=== PATIENT | female | born 1980 | race Caucasian/White ===

== ENCOUNTER 2018-02-22 08:50 | Inpatient (IN) | payer OTHER ==
[2018-02-22] MEDS ORDERED: AMIKACIN IV PER PHARMACY XX (09:30)
[2018-02-22] MEDS ORDERED: OXYCODONE/ACETAMINOPHEN (5/325) TAB PO (10:30)
[2018-02-22 10:33] LABS: AADO2 Arterial 573.3 mmHg (7.0-24.0); Arterial Base Excess 9.1 mmol/L (-3.0-3); Arterial Blood Gas Oxygen Sat 94.4 mmHG (95.0-98.0); Arterial COHb 1.1 % (0.0-3.0); Arterial Fraction of Oxyhgb 92.8 % (93.0-99.0); Arterial HCO3 35.1 mmol/L (22.0-26.0); Arterial MetHb 0.6 % (0.0-1.5); Arterial Total Hemglobin 7.4 g/dl (12.0-18.0); Arterial pCO2 58.6 mmhg (35-45); MODE VENT - AC; Site LB
[2018-02-22 10:38] LABS: ALANINE AMINOTRANSFERASE 38 IU/L (13-69); ALBUMIN 2.6 g/dl (3.3-4.9); ALBUMIN/GLOBULIN RATIO 1.13; ALKALINE PHOSPHATASE 141 IU/L (42-121); ANION GAP 6 (5-13); ASPARTATE AMINO TRANSFERASE 71 IU/L (15-46); BILIRUBIN,INDIRECT 0.5 mg/dl (0-1.1); BILIRUBIN,TOTAL 0.5 mg/dl (0.2-1.3); BLOOD UREA NITROGEN 24 mg/dl (7-20); CARBON DIOXIDE 36 mmol/L (21-31); CHLORIDE 103 mmol/L (97-110); CREATININE 0.47 mg/dl (0.44-1.00); Estimated GFR > 60 mL/min (>60); GLUCOSE 143 mg/dl (70-220); POTASSIUM 3.3 mmol/L (3.5-5.1); SODIUM 145 mmol/L (135-144); TOTAL PROTEIN 4.9 g/dl (6.1-8.1)
[2018-02-22] MEDS ORDERED: VANCOMYCIN IV PER PHARMACY XX (12:30)
[2018-02-22] MEDS: DEXTROSE 5%-0.45% NACL 1,000 ML IV (13:04)
[2018-02-22] MEDS: METHYLPREDNISOLONE 125 MG INJ IV ×2 (13:04→23:09)
[2018-02-22] MEDS: clonAZEPAM 0.5 MG TAB PO (13:40)
[2018-02-22] MEDS: DIPHENHYDRAMINE 50 MG INJ IV (13:40)
[2018-02-22] MEDS: OXYCODONE/ACETAMINOPHEN (5/325) TAB PO (14:08)
[2018-02-22] MEDS: METHADONE 10 MG TAB PO ×2 (15:21→20:51)
[2018-02-22] MEDS: QUETIAPINE 25 MG TAB GTB ×2 (15:27→23:09)
[2018-02-22] MEDS: POTASSIUM CHLORIDE 100 ML IVPB (15:27)
[2018-02-22] MEDS: VANCOMYCIN 1 GM (PMX) 250 ML IVPB (17:35)
[2018-02-22 19:54] LABS: HAAIG REFLEX REFLEX FILED
[2018-02-22 20:22] LABS: COMPLEMENT C3 53 mg/dl (88-165)
[2018-02-22 20:24] LABS: COMPLEMENT C4 < 8 mg/dl (14-44)
[2018-02-22 20:44] LABS: HEPATITIS B SURFACE ANTIGEN NEGATIVE (NEGATIVE)
[2018-02-22] MEDS: CLOTRIMAZOLE 1% 30 GM CR TOP (20:50)
[2018-02-22] MEDS: LEVETIRACETAM 500 MG (PMX) 100 ML IVPB (20:50)
[2018-02-22] MEDS ORDERED: QUETIAPINE 25 MG TAB GTB (21:00)
[2018-02-22 21:02] LABS: HEPATITIS B CORE ANTIBODY NEGATIVE (NEGATIVE); HEPATITIS C VIRAL ANTIBODY NEGATIVE (NEGATIVE)
[2018-02-23] MEDS: DIPHENHYDRAMINE 50 MG INJ IV (02:35)
[2018-02-23] MEDS: clonAZEPAM 0.5 MG TAB PO (02:50)
[2018-02-23] MEDS: OXYCODONE/ACETAMINOPHEN (5/325) TAB PO (03:12)
[2018-02-23] MEDS: morphine 2 MG INJ IV (03:50)
[2018-02-23] MEDS: VANCOMYCIN 1 GM (PMX) 250 ML IVPB ×2 (05:25→18:31)
[2018-02-23] MEDS: METHYLPREDNISOLONE 125 MG INJ IV ×3 (05:26→21:22)
[2018-02-23 05:51] LABS: SODIUM,URINE RANDOM 108 mmol/L (30-90)
[2018-02-23 05:52] LABS: ABNORMAL IP MESSAGE 1; HEMATOCRIT 28.9 % (37.0-47.0); HEMOGLOBIN 9.1 g/dl (12.0-16.0); MEAN CORPUSCULAR HEMOGLOBIN 30.2 pg (29.0-33.0); MEAN CORPUSCULAR HGB CONC 31.5 g/dl (32.0-37.0); MEAN PLATELET VOLUME 12.5 fl (7.4-10.4); NUCLEATED RED BLOOD CELLS% 2.7 /100WBC (0.0-0.0); PLATELET COUNT 183 10^3/UL (140-415); RED BLOOD COUNT 3.01 10^6/ul (4.20-5.40); RED CELL DISTRIBUTION WIDTH 20.8 % (11.5-14.5)
[2018-02-23 05:59] LABS: AADO2 Arterial 626.7 mmHg (7.0-24.0); Allen Test ACCEPTAB; Arterial Base Excess 2.6 mmol/L (-3.0-3); Arterial Blood Gas Oxygen Sat 85.7 mmHG (95.0-98.0); Arterial COHb 0.4 % (0.0-3.0); Arterial HCO3 26.2 mmol/L (22.0-26.0); Arterial MetHb 0.4 % (0.0-1.5); Arterial Total Hemglobin 9.8 g/dl (12.0-18.0); Arterial pCO2 36.8 mmhg (35-45); MODE VENT - AC; Site Right Radial
[2018-02-23 06:05] LABS: ADD MAN DIFF? YES; POSITIVE DIFF @See below
[2018-02-23] MEDS: DEXTROSE 5%-0.45% NACL 1,000 ML IV ×2 (06:13→17:01)
[2018-02-23 06:14] LABS: ANION GAP 12 (5-13); BLOOD UREA NITROGEN 30 mg/dl (7-20); CALCIUM 8.6 mg/dl (8.4-10.2); CARBON DIOXIDE 32 mmol/L (21-31); CHLORIDE 101 mmol/L (97-110); Estimated GFR > 60 mL/min (>60); GLUCOSE 109 mg/dl (70-220); MAGNESIUM 2.1 mg/dl (1.7-2.5); PHOSPHORUS 4.8 mg/dl (2.5-4.9); POTASSIUM 4.2 mmol/L (3.5-5.1); SODIUM 145 mmol/L (135-144)
[2018-02-23 06:32] LABS: ADD UMIC YES; UR ASCORBIC ACID NEGATIVE (NEGATIVE); UR BILIRUBIN (Dip) NEGATIVE (NEGATIVE); UR BLOOD (Dip) NEGATIVE (NEGATIVE); UR CLARITY SLIGHTLY CLOUDY (CLEAR); UR COLOR AMBER (YELLOW); UR GLUCOSE (Dip) NEGATIVE (NEGATIVE); UR GRANULAR CAST FEW /HPF (NONE SEEN); UR HYALINE CAST FEW /HPF (NONE SEEN); UR KETONES (Dip) NEGATIVE (NEGATIVE); UR LEUKOCYTE ESTERASE (Dip) NEGATIVE Leu/ul (NEGATIVE); UR NITRITE (Dip) NEGATIVE (NEGATIVE); UR RBC 5 /HPF (0-5); UR TOTAL PROTEIN (Dip) 1+ mg/dl (NEGATIVE); UR UROBILINOGEN (Dip) NEGATIVE (NEGATIVE); UR WBC 3 /HPF (0-5)
[2018-02-23] MEDS ORDERED: PROPOFOL 100 ML (06:48)
[2018-02-23] MEDS: PROPOFOL 100 ML IV ×2 (06:52→17:01)
[2018-02-23 07:21] LABS: ANISOCYTOSIS 2+ (0-0); BAND NEUTROPHILS #M 6.2 10^3/ul (0.0-0.6); BAND NEUTROPHILS % (M) 16 % (0-4); ERYTHROBLAST% (NRBC) (M) 1 % (0-0); LYMPHOCYTES #M 5.4 10^3/ul (0.8-2.9); LYMPHOCYTES % (M) 14 % (15-51); METAMYELOCYTES #M 1.9 10^3/ul (0.0-0.0); METAMYELOCYTES %M 5 % (0-0); MICROCYTOSIS 1+ (0-0); MONOCYTE #M 2.3 10^3/ul (0.3-0.9); MONOCYTES % (M) 6 % (0-11); MYELOCYTES #M 1.5 10^3/ul (0.0-0.0); MYELOCYTES % (M) 4 % (0-0); OVALOCYTES 1+ (0-0); PLATELET ESTIMATE NORMAL; POLYCHROMASIA 3+ (0-0); SEG NEUT #M 23.9 10^3/ul (1.6-7.5); SEGMENTED NEUTROPHILS (M) % 55 % (39-77); STOMATOCYTES 1+ (0-0)
[2018-02-23 07:50] LABS: AADO2 Arterial 616.2 mmHg (7.0-24.0); Allen Test ACCEPTAB; Arterial Base Excess 3.1 mmol/L (-3.0-3); Arterial Blood Gas Oxygen Sat 79.8 mmHG (95.0-98.0); Arterial COHb 0.6 % (0.0-3.0); Arterial HCO3 28.7 mmol/L (22.0-26.0); Arterial MetHb 0.4 % (0.0-1.5); Arterial Total Hemglobin 9.1 g/dl (12.0-18.0); Arterial pCO2 49.7 mmhg (35-45); MODE VENT - AC; Site Left Radial
[2018-02-23] MEDS: LORATADINE 10 MG TAB GTB (08:54)
[2018-02-23] MEDS: FLUCONAZOLE 100 MG TAB GTB (08:54)
[2018-02-23] MEDS: METHADONE 10 MG TAB PO ×2 (08:55→21:21)
[2018-02-23] MEDS: QUETIAPINE 25 MG TAB GTB ×3 (08:56→21:21)
[2018-02-23] MEDS: CLOTRIMAZOLE 1% 30 GM CR TOP ×2 (09:06→21:22)
[2018-02-23] MEDS: PANTOPRAZOLE 40 MG INJ IVPB (09:31)
[2018-02-23] MEDS: LEVETIRACETAM 500 MG (PMX) 100 ML IVPB ×2 (09:31→21:31)
[2018-02-23] MEDS: SOD CHLORIDE 0.9% 250 ML IV* (10:16)
[2018-02-23] MEDS: LIDOCAINE 1% (MPF) 5 ML VIAL SC (11:00)
[2018-02-23 11:46] LABS: INR 1.49; PROTIME 18.3 Sec (11.9-14.9); PT RATIO 1.4
[2018-02-23] MEDS: AMIKACIN 900 MG in SOD CHLORIDE 0.9% 250 ML IVPB (14:30)
[2018-02-23 14:43] LABS: IMMEDIATE SPIN CROSSMATCH 1 1
[2018-02-23] MEDS ORDERED: POLYETHYLENE GLYCOL 17 GM PACKET (15:31)
[2018-02-23 15:53] LABS: RHEUMATOID FACTOR NEGATIVE (NEGATIVE)
[2018-02-24] MEDS: PROPOFOL 100 ML IV ×2 (01:57→19:00)
[2018-02-24] MEDS: VANCOMYCIN 1 GM (PMX) 250 ML IVPB ×2 (05:12→17:59)
[2018-02-24] MEDS: METHYLPREDNISOLONE 125 MG INJ IV ×3 (05:14→22:00)
[2018-02-24] MEDS: PANTOPRAZOLE 40 MG INJ IVPB (05:14)
[2018-02-24] MEDS: morphine 2 MG INJ IV (05:14)
[2018-02-24 05:50] LABS: ABNORMAL IP MESSAGE 1; HEMATOCRIT 22.4 % (37.0-47.0); HEMOGLOBIN 7.7 g/dl (12.0-16.0); MEAN CORPUSCULAR HEMOGLOBIN 35.5 pg (29.0-33.0); MEAN CORPUSCULAR HGB CONC 34.4 g/dl (32.0-37.0); MEAN CORPUSCULAR VOLUME 103.2 fl (82.0-101.0); MEAN PLATELET VOLUME 13.1 fl (7.4-10.4); NUCLEATED RED BLOOD CELLS% 3.1 /100WBC (0.0-0.0); PLATELET COUNT 118 10^3/UL (140-415); RED BLOOD COUNT 2.17 10^6/ul (4.20-5.40); RED CELL DISTRIBUTION WIDTH 23.3 % (11.5-14.5)
[2018-02-24 05:50] LABS: WHITE BLOOD COUNT 23.9 10^3/ul (4.8-10.8)
[2018-02-24 05:52] LABS: POSITIVE DIFF @See below
[2018-02-24 05:53] LABS: ADD MAN DIFF? YES
[2018-02-24 06:10] LABS: VANCOMYCIN,TROUGH 14.9 ug/ml (10.0-20.0)
[2018-02-24 06:19] LABS: ANION GAP 8 (5-13); BLOOD UREA NITROGEN 35 mg/dl (7-20); CARBON DIOXIDE 34 mmol/L (21-31); CHLORIDE 100 mmol/L (97-110); CREATININE 0.53 mg/dl (0.44-1.00); Estimated GFR > 60 mL/min (>60); GLUCOSE 127 mg/dl (70-220); MAGNESIUM 1.9 mg/dl (1.7-2.5); PHOSPHORUS 4.5 mg/dl (2.5-4.9); POTASSIUM 4.2 mmol/L (3.5-5.1); SODIUM 142 mmol/L (135-144)
[2018-02-24 06:22] LABS: LACTIC ACID 2.5 mmol/L (0.5-2.0)
[2018-02-24 07:05] LABS: ANISOCYTOSIS 2+ (0-0); BAND NEUTROPHILS #M 1.1 10^3/ul (0.0-0.6); BAND NEUTROPHILS % (M) 5 % (0-4); ERYTHROBLAST% (NRBC) (M) 1 % (0-0); GIANT THROMBO% (M) 1 % (0-0); HYPOCHROMASIA 1+ (0-0); LYMPHOCYTES #M 1.9 10^3/ul (0.8-2.9); LYMPHOCYTES % (M) 8 % (15-51); MICROCYTOSIS 1+ (0-0); MONOCYTE #M 1.9 10^3/ul (0.3-0.9); MONOCYTES % (M) 8 % (0-11); MYELOCYTES #M 0.4 10^3/ul (0.0-0.0); MYELOCYTES % (M) 2 % (0-0); PLATELET ESTIMATE NORMAL; POLYCHROMASIA 2+ (0-0); SEG NEUT #M 18.7 10^3/ul (1.6-7.5); SEGMENTED NEUTROPHILS (M) % 77 % (39-77); SMUDGE%M 3 % (0-0)
[2018-02-24 08:10] LABS: AADO2 Arterial 616.1 mmHg (7.0-24.0); Allen Test ACCEPTAB; Arterial Blood Gas Oxygen Sat 81.9 mmHG (95.0-98.0); Arterial COHb 1.3 % (0.0-3.0); Arterial Fraction of Oxyhgb 80.6 % (93.0-99.0); Arterial HCO3 28.5 mmol/L (22.0-26.0); Arterial MetHb 0.3 % (0.0-1.5); Arterial Total Hemglobin 9.7 g/dl (12.0-18.0); Arterial pCO2 48.3 mmhg (35-45); MODE VENT - AC; Site Right Radial
[2018-02-24 08:20] LABS: IRON 92 ug/dl (35-150)
[2018-02-24 08:29] LABS: % IRON SATURATION 35 % SAT (22-52); TOTAL IRON BINDING CAPACITY 260 ug/dl (241-421)
[2018-02-24] MEDS ORDERED: AMLODIPINE 10 MG TAB GTB (09:00)
[2018-02-24] MEDS: MIDAZOLAM (DRIP) 50 mg/50 mL 50 ML IV ×3 (09:33→18:34)
[2018-02-24] MEDS: QUETIAPINE 25 MG TAB GTB ×3 (09:41→20:43)
[2018-02-24] MEDS: METHADONE 10 MG TAB PO ×2 (09:42→20:43)
[2018-02-24] MEDS: FLUCONAZOLE 100 MG TAB GTB (09:42)
[2018-02-24] MEDS: LORATADINE 10 MG TAB GTB (09:43)
[2018-02-24] MEDS: CLOTRIMAZOLE 1% 30 GM CR TOP ×2 (09:44→20:44)
[2018-02-24] MEDS: LORAZEPAM 2 MG INJ IV (09:47)
[2018-02-24] MEDS: LEVETIRACETAM 500 MG (PMX) 100 ML IVPB ×2 (10:15→20:44)
[2018-02-24] MEDS: DILTIAZEM 60 MG TAB GTB ×3 (10:25→17:07)
[2018-02-24 11:04] LABS: LACTIC ACID 2.1 mmol/L (0.5-2.0)
[2018-02-24] MEDS: FENTAnyl (DRIP) 1000 mcg/100mL 100 ML IV (11:16)
[2018-02-24 13:56] LABS: ANA SCREEN NEGATIVE (NEGATIVE); ANCA SCREEN NEGATIVE (NEGATIVE)
[2018-02-24 14:40] LABS: HEMATOCRIT 23.3 % (37.0-47.0); HEMOGLOBIN 7.1 g/dl (12.0-16.0)
[2018-02-24 14:47] LABS: CREATININE, RANDOM URINE 52 mg/dL (20-275); MICROALBUMIN 24.9 mg/dL; MICROALBUMIN/CREATININE RATIO 479 (<30)
[2018-02-24 15:31] LABS: MYELOPEROXIDASE ANTIBODY <1.0 AI; PROTEINASE-3 ANTIBODY <1.0 AI
[2018-02-24] MEDS: SOD CHLORIDE 0.9% 250 ML IV* (21:00)
[2018-02-24 21:21] LABS: IMMEDIATE SPIN CROSSMATCH 1
[2018-02-25] MEDS: MIDAZOLAM (DRIP) 50 mg/50 mL 50 ML IV ×4 (00:44→19:19)
[2018-02-25] MEDS: AMIKACIN 900 MG in SOD CHLORIDE 0.9% 250 ML IVPB (03:00)
[2018-02-25] MEDS: morphine 2 MG INJ IV (03:01)
[2018-02-25] MEDS: LORAZEPAM 2 MG INJ IV (03:55)
[2018-02-25] MEDS: PROPOFOL 100 ML IV ×2 (04:07→18:04)
[2018-02-25] MEDS: VANCOMYCIN 1 GM (PMX) 250 ML IVPB ×2 (04:53→16:21)
[2018-02-25 05:32] LABS: WHITE BLOOD COUNT 21.9 10^3/ul (4.8-10.8)
[2018-02-25 05:32] LABS: ABNORMAL IP MESSAGE 1; HEMOGLOBIN 8.8 g/dl (12.0-16.0); MEAN CORPUSCULAR HGB CONC 31.4 g/dl (32.0-37.0); MEAN CORPUSCULAR VOLUME 98.6 fl (82.0-101.0); MEAN PLATELET VOLUME 12.9 fl (7.4-10.4); NUCLEATED RED BLOOD CELLS% 1.4 /100WBC (0.0-0.0); PLATELET COUNT 118 10^3/UL (140-415); RED BLOOD COUNT 2.84 10^6/ul (4.20-5.40); RED CELL DISTRIBUTION WIDTH 22.4 % (11.5-14.5)
[2018-02-25 05:34] LABS: ADD MAN DIFF? YES; POSITIVE DIFF @See below
[2018-02-25] MEDS: METHYLPREDNISOLONE 125 MG INJ IV ×2 (05:48→13:58)
[2018-02-25] MEDS: PANTOPRAZOLE 40 MG INJ IVPB (05:48)
[2018-02-25] MEDS: DILTIAZEM 60 MG TAB GTB ×5 (06:00→23:37)
[2018-02-25 06:15] LABS: ANION GAP 6 (5-13); BLOOD UREA NITROGEN 35 mg/dl (7-20); CARBON DIOXIDE 34 mmol/L (21-31); CHLORIDE 101 mmol/L (97-110); CREATININE 0.47 mg/dl (0.44-1.00); Estimated GFR > 60 mL/min (>60); GLUCOSE 128 mg/dl (70-220); MAGNESIUM 1.7 mg/dl (1.7-2.5); PHOSPHORUS 3.9 mg/dl (2.5-4.9); POTASSIUM 3.9 mmol/L (3.5-5.1); SODIUM 141 mmol/L (135-144)
[2018-02-25] MEDS: FENTAnyl (DRIP) 1000 mcg/100mL 100 ML IV ×2 (06:17→17:41)
[2018-02-25 07:21] LABS: ANISOCYTOSIS 1+ (0-0); BAND NEUTROPHILS #M 2.8 10^3/ul (0.0-0.6); BAND NEUTROPHILS % (M) 13 % (0-4); BASOPHIL #M 0.2 10^3/ul (0.0-0.0); BASOPHILS % (M) 1 % (0-2); ERYTHROBLAST% (NRBC) (M) 1 % (0-0); LYMPHOCYTES #M 0.4 10^3/ul (0.8-2.9); LYMPHOCYTES % (M) 2 % (15-51); MONOCYTE #M 0.8 10^3/ul (0.3-0.9); MONOCYTES % (M) 4 % (0-11); PLATELET ESTIMATE DECREASED; POIKILOCYTOSIS 1+ (0-0); POLYCHROMASIA 2+ (0-0); SEG NEUT #M 18.1 10^3/ul (1.6-7.5); SEGMENTED NEUTROPHILS (M) % 80 % (39-77); SMUDGE%M 6 % (0-0)
[2018-02-25 07:42] LABS: AADO2 Arterial 375.9 mmHg (7.0-24.0); Allen Test ACCEPTAB; Arterial Blood Gas Oxygen Sat 99.4 mmHG (95.0-98.0); Arterial COHb 0.6 % (0.0-3.0); Arterial Fraction of Oxyhgb 98.3 % (93.0-99.0); Arterial HCO3 29.7 mmol/L (22.0-26.0); Arterial MetHb 0.5 % (0.0-1.5); Arterial Total Hemglobin 10.2 g/dl (12.0-18.0); Arterial pCO2 44.3 mmhg (35-45); MODE VENT - PC; Site Right Radial
[2018-02-25] MEDS: LORATADINE 10 MG TAB GTB (08:43)
[2018-02-25] MEDS: FLUCONAZOLE 100 MG TAB GTB (08:43)
[2018-02-25] MEDS: METHADONE 10 MG TAB PO ×2 (08:43→20:58)
[2018-02-25] MEDS: QUETIAPINE 25 MG TAB GTB ×3 (08:44→20:58)
[2018-02-25] MEDS: CLOTRIMAZOLE 1% 30 GM CR TOP ×2 (08:44→20:59)
[2018-02-25] MEDS: LEVETIRACETAM 500 MG (PMX) 100 ML IVPB ×2 (08:44→20:57)
[2018-02-25] MEDS: BENAZEPRIL 20 MG TAB GTB (09:55)
[2018-02-25] MEDS: VECURONIUM 100 MG in DEXTROSE 5% 100 ML IV (12:23)
[2018-02-25 17:01] LABS: ANTI-DNA (DOUBLE STRANDED) <95 U/mL (< 301)
[2018-02-25] MEDS: POTASSIUM CHLORIDE 100 ML IVPB (18:03)
[2018-02-25] MEDS: FUROSEMIDE 20 MG INJ IV (18:03)
[2018-02-25] MEDS: MAGNESIUM SULFATE 2 GM/50 ML 50 ML IVPB (18:03)
[2018-02-25 20:29] LABS: AADO2 Arterial 572.8 mmHg (7.0-24.0); Allen Test ACCEPTAB; Arterial Base Excess 5.7 mmol/L (-3.0-3); Arterial Blood Gas Oxygen Sat 92.5 mmHG (95.0-98.0); Arterial COHb 1.1 % (0.0-3.0); Arterial Fraction of Oxyhgb 91.2 % (93.0-99.0); Arterial HCO3 33.9 mmol/L (22.0-26.0); Arterial MetHb 0.3 % (0.0-1.5); Arterial pCO2 68.8 mmhg (35-45); MODE VENT - PC; Site Right Radial
[2018-02-26] MEDS: MIDAZOLAM (DRIP) 50 mg/50 mL 50 ML IV ×5 (00:27→20:24)
[2018-02-26] MEDS: VECURONIUM 100 MG in DEXTROSE 5% 100 ML IV ×2 (00:38→13:51)
[2018-02-26] MEDS: ENALAPRILAT 1.25 MG INJ IV ×3 (01:39→20:05)
[2018-02-26] MEDS: LORAZEPAM 2 MG INJ IV ×2 (03:15→06:38)
[2018-02-26] MEDS: FENTAnyl (DRIP) 1000 mcg/100mL 100 ML IV ×2 (03:44→13:54)
[2018-02-26] MEDS: VANCOMYCIN 1 GM (PMX) 250 ML IVPB ×2 (04:19→17:39)
[2018-02-26 04:38] LABS: WHITE BLOOD COUNT 24.1 10^3/ul (4.8-10.8)
[2018-02-26 04:38] LABS: ABNORMAL IP MESSAGE 1; HEMATOCRIT 30.4 % (37.0-47.0); HEMOGLOBIN 9.2 g/dl (12.0-16.0); MEAN CORPUSCULAR HEMOGLOBIN 30.2 pg (29.0-33.0); MEAN CORPUSCULAR HGB CONC 30.3 g/dl (32.0-37.0); MEAN CORPUSCULAR VOLUME 99.7 fl (82.0-101.0); MEAN PLATELET VOLUME 12.9 fl (7.4-10.4); NUCLEATED RED BLOOD CELLS% 0.5 /100WBC (0.0-0.0); PLATELET COUNT 133 10^3/UL (140-415); RED BLOOD COUNT 3.05 10^6/ul (4.20-5.40); RED CELL DISTRIBUTION WIDTH 22.7 % (11.5-14.5)
[2018-02-26 04:41] LABS: ADD MAN DIFF? YES; POSITIVE DIFF @See below
[2018-02-26 04:56] LABS: ALANINE AMINOTRANSFERASE 28 IU/L (13-69); ALBUMIN 2.6 g/dl (3.3-4.9); ALBUMIN/GLOBULIN RATIO 0.92; ALKALINE PHOSPHATASE 166 IU/L (42-121); ANION GAP 13 (5-13); ASPARTATE AMINO TRANSFERASE 32 IU/L (15-46); BILIRUBIN,INDIRECT 0.8 mg/dl (0-1.1); BILIRUBIN,TOTAL 0.8 mg/dl (0.2-1.3); BLOOD UREA NITROGEN 31 mg/dl (7-20); CALCIUM 7.8 mg/dl (8.4-10.2); CARBON DIOXIDE 36 mmol/L (21-31); CHLORIDE 101 mmol/L (97-110); CREATININE 0.42 mg/dl (0.44-1.00); Estimated GFR > 60 mL/min (>60); GLUCOSE 121 mg/dl (70-220); POTASSIUM 4.1 mmol/L (3.5-5.1); SODIUM 150 mmol/L (135-144); TOTAL PROTEIN 5.4 g/dl (6.1-8.1)
[2018-02-26 04:58] LABS: PHOSPHORUS 4.5 mg/dl (2.5-4.9)
[2018-02-26 04:58] LABS: MAGNESIUM 2.1 mg/dl (1.7-2.5)
[2018-02-26 05:04] LABS: ANISOCYTOSIS 1+ (0-0); B-TYPE NATRIURETIC PEPTIDE 8950 PG/ML (0-125); BAND NEUTROPHILS #M 3.6 10^3/ul (0.0-0.6); BAND NEUTROPHILS % (M) 15 % (0-4); METAMYELOCYTES #M 0.7 10^3/ul (0.0-0.0); METAMYELOCYTES %M 3 % (0-0); MONOCYTE #M 0.2 10^3/ul (0.3-0.9); MONOCYTES % (M) 1 % (0-11); MYELOCYTES #M 0.2 10^3/ul (0.0-0.0); MYELOCYTES % (M) 1 % (0-0); PLATELET ESTIMATE DECREASED; POLYCHROMASIA 2+ (0-0); SEG NEUT #M 20.1 10^3/ul (1.6-7.5); SEGMENTED NEUTROPHILS (M) % 80 % (39-77); SMUDGE%M 9 % (0-0)
[2018-02-26] MEDS: PANTOPRAZOLE 40 MG INJ IVPB (05:12)
[2018-02-26] MEDS: METHYLPREDNISOLONE 125 MG INJ IV ×2 (05:12→17:38)
[2018-02-26] MEDS: DILTIAZEM 60 MG TAB GTB ×4 (05:13→23:09)
[2018-02-26] MEDS: PROPOFOL 100 ML IV ×2 (06:43→19:00)
[2018-02-26 08:21] LABS: AADO2 Arterial 415.2 mmHg (7.0-24.0); Allen Test ACCEPTAB; Arterial Base Excess 8.4 mmol/L (-3.0-3); Arterial Blood Gas Oxygen Sat 98.3 mmHG (95.0-98.0); Arterial COHb 1.2 % (0.0-3.0); Arterial Fraction of Oxyhgb 96.6 % (93.0-99.0); Arterial HCO3 32.1 mmol/L (22.0-26.0); Arterial MetHb 0.5 % (0.0-1.5); Arterial Total Hemglobin 11.6 g/dl (12.0-18.0); Arterial pCO2 40.9 mmhg (35-45); MODE VENT - PC; Site Right Radial
[2018-02-26] MEDS: LORATADINE 10 MG TAB GTB (08:41)
[2018-02-26] MEDS: FLUCONAZOLE 100 MG TAB GTB (08:41)
[2018-02-26] MEDS: BENAZEPRIL 20 MG TAB GTB ×2 (08:42→20:08)
[2018-02-26] MEDS: QUETIAPINE 25 MG TAB GTB ×3 (08:43→20:09)
[2018-02-26] MEDS: METHADONE 10 MG TAB PO ×2 (09:00→20:09)
[2018-02-26] MEDS ORDERED: hydrALAzine 20 MG INJ IV (09:00)
[2018-02-26] MEDS: FUROSEMIDE 20 MG INJ IV (09:51)
[2018-02-26] MEDS: CLOTRIMAZOLE 1% 30 GM CR TOP ×2 (09:52→20:12)
[2018-02-26] MEDS: ARTIFICIAL TEARS 15 ML OPH BOTH EYES ×4 (10:00→23:10)
[2018-02-26] MEDS: DEXTROSE 5% 1,000 ML IV (12:45)
[2018-02-26] MEDS: LEVETIRACETAM 500 MG (PMX) 100 ML IVPB ×2 (12:45→20:12)
[2018-02-26] MEDS: OCULAR LUBRICANT 3.5 GM OPH OINT BOTH EYES ×3 (12:51→23:11)
[2018-02-26 14:36] LABS: B2 GLYCOPROTEIN I AB (IGA) <9 SAU (< OR = 20); B2 GLYCOPROTEIN I AB (IGG) <9 SGU (< OR = 20); B2 GLYCOPROTEIN I AB (IGM) 9 SMU (< OR = 20)
[2018-02-26 16:07] LABS: PROCALCITONIN 0.31 ng/mL (<0.10)
[2018-02-26] MEDS: morphine 2 MG INJ IV (17:40)
[2018-02-26] MEDS: hydrALAzine 20 MG INJ IV (18:07)
[2018-02-27] MEDS: MIDAZOLAM (DRIP) 50 mg/50 mL 50 ML IV ×5 (01:50→22:06)
[2018-02-27] MEDS: FENTAnyl (DRIP) 1000 mcg/100mL 100 ML IV ×3 (01:53→22:28)
[2018-02-27] MEDS: AMIKACIN 900 MG in SOD CHLORIDE 0.9% 250 ML IVPB (02:17)
[2018-02-27] MEDS: DEXTROSE 5% 1,000 ML IV (04:26)
[2018-02-27] MEDS: VECURONIUM 100 MG in DEXTROSE 5% 100 ML IV (04:26)
[2018-02-27 04:43] LABS: ADD MAN DIFF? NO
[2018-02-27 04:46] LABS: ABNORMAL IP MESSAGE 1; BASOPHILS % 0.2 % (0.0-2.0); EOSINOPHILS # 0.1 10^3/ul (0.0-0.5); EOSINOPHILS % 0.5 % (0.0-7.0); HEMATOCRIT 29.3 % (37.0-47.0); HEMOGLOBIN 9.3 g/dl (12.0-16.0); MEAN CORPUSCULAR HEMOGLOBIN 30.6 pg (29.0-33.0); MEAN CORPUSCULAR HGB CONC 31.7 g/dl (32.0-37.0); MEAN CORPUSCULAR VOLUME 96.4 fl (82.0-101.0); MEAN PLATELET VOLUME 12.4 fl (7.4-10.4); MONOCYTE # 1.8 10^3/ul (0.3-0.9); MONOCYTES % 7.4 % (0.0-11.0); NEUTROPHIL # 19.6 10^3/ul (1.6-7.5); NEUTROPHILS % 80.6 % (39.0-77.0); NUCLEATED RED BLOOD CELLS% 0.1 /100WBC (0.0-0.0); PLATELET COUNT 146 10^3/UL (140-415); RED BLOOD COUNT 3.04 10^6/ul (4.20-5.40); RED CELL DISTRIBUTION WIDTH 22.5 % (11.5-14.5)
[2018-02-27 04:46] LABS: WHITE BLOOD COUNT 24.4 10^3/ul (4.8-10.8)
[2018-02-27 04:51] LABS: POSITIVE DIFF @See below
[2018-02-27] MEDS: PANTOPRAZOLE 40 MG INJ IVPB (05:04)
[2018-02-27] MEDS: OCULAR LUBRICANT 3.5 GM OPH OINT BOTH EYES ×4 (05:04→23:56)
[2018-02-27] MEDS: METHYLPREDNISOLONE 125 MG INJ IV ×2 (05:04→18:01)
[2018-02-27] MEDS: VANCOMYCIN 1 GM (PMX) 250 ML IVPB ×2 (05:04→18:01)
[2018-02-27] MEDS: DILTIAZEM 60 MG TAB GTB ×4 (05:05→23:49)
[2018-02-27 05:07] LABS: ANION GAP 11 (5-13); BLOOD UREA NITROGEN 26 mg/dl (7-20); CALCIUM 7.8 mg/dl (8.4-10.2); CARBON DIOXIDE 35 mmol/L (21-31); CHLORIDE 96 mmol/L (97-110); CREATININE 0.39 mg/dl (0.44-1.00); Estimated GFR > 60 mL/min (>60); GLUCOSE 128 mg/dl (70-220); MAGNESIUM 1.6 mg/dl (1.7-2.5); PHOSPHORUS 4.5 mg/dl (2.5-4.9); POTASSIUM 3.7 mmol/L (3.5-5.1); SODIUM 142 mmol/L (135-144)
[2018-02-27] MEDS: PROPOFOL 100 ML IV ×2 (07:00→16:08)
[2018-02-27] MEDS: MAGNESIUM SULFATE 2 GM/50 ML 50 ML IVPB ×2 (07:50→07:52)
[2018-02-27] MEDS: LABETALOL HCL 20MG INJ IV (07:56)
[2018-02-27 08:57] LABS: Allen Test ACCEPTAB; Arterial Base Excess 7.6 mmol/L (-3.0-3); Arterial Blood Gas Oxygen Sat 95.7 mmHG (95.0-98.0); Arterial Fraction of Oxyhgb 93.4 % (93.0-99.0); Arterial MetHb 0.4 % (0.0-1.5); Arterial Total Hemglobin 11.5 g/dl (12.0-18.0); Arterial pCO2 34.3 mmhg (35-45); MODE VENT - AC; Site Right Radial
[2018-02-27] MEDS: LEVETIRACETAM 500 MG (PMX) 100 ML IVPB (09:10)
[2018-02-27] MEDS: FUROSEMIDE 20 MG INJ IV (09:10)
[2018-02-27] MEDS: CLOTRIMAZOLE 1% 30 GM CR TOP ×2 (09:10→20:11)
[2018-02-27] MEDS: ARTIFICIAL TEARS 15 ML OPH BOTH EYES ×3 (09:10→21:19)
[2018-02-27 10:51] LABS: CARDIOLIPIN AB - IGA <11 APL; CARDIOLIPIN AB - IGG <14 GPL; CARDIOLIPIN AB - IGM 49 MPL
[2018-02-27] MEDS: LORAZEPAM 2 MG INJ IV ×3 (11:05→15:04)
[2018-02-27] MEDS: BENAZEPRIL 20 MG TAB GTB ×2 (11:07→20:11)
[2018-02-27] MEDS: LORATADINE 10 MG TAB GTB (11:07)
[2018-02-27] MEDS: QUETIAPINE 25 MG TAB GTB ×3 (11:07→20:11)
[2018-02-27] MEDS: METHADONE 10 MG TAB PO ×2 (11:07→20:11)
[2018-02-27] MEDS ORDERED: morphine 2 MG INJ (11:36)
[2018-02-27] MEDS: morphine 2 MG INJ IV ×2 (11:37→14:12)
[2018-02-27] MEDS: VALPROATE INJ 1,000 MG in SOD CHLORIDE 0.9% 100 ML IVPB (14:48)
[2018-02-27 16:21] LABS: AADO2 Arterial 189.3 mmHg (7.0-24.0); Allen Test ACCEPTAB; Arterial Base Excess 7.8 mmol/L (-3.0-3); Arterial Blood Gas Oxygen Sat 94.4 mmHG (95.0-98.0); Arterial COHb 1.2 % (0.0-3.0); Arterial Fraction of Oxyhgb 92.8 % (93.0-99.0); Arterial HCO3 32.6 mmol/L (22.0-26.0); Arterial MetHb 0.5 % (0.0-1.5); Arterial Total Hemglobin 10.3 g/dl (12.0-18.0); Arterial pCO2 47.1 mmhg (35-45); MODE VENT - AC; Site Right Radial
[2018-02-27 17:26] LABS: AMMONIA 13 umol/l (9-30)
[2018-02-27 17:44] LABS: VALPROATE 50 ug/ml (50-100)
[2018-02-27] MEDS: CASPOFUNGIN 70 MG in SOD CHLORIDE 0.9% 250 ML IVPB (20:08)
[2018-02-27] MEDS: VALPROATE INJ 500 MG in SOD CHLORIDE 0.9% 50 ML IVPB (21:16)
[2018-02-28] MEDS: DEXTROSE 5% 1,000 ML IV (01:18)
[2018-02-28] MEDS: LORAZEPAM 2 MG INJ IV ×2 (01:35→08:08)
[2018-02-28] MEDS: morphine 2 MG INJ IV ×2 (02:10→08:08)
[2018-02-28 04:18] LABS: ADD MAN DIFF? NO
[2018-02-28 04:22] LABS: WHITE BLOOD COUNT 11.5 10^3/ul (4.8-10.8)
[2018-02-28 04:22] LABS: BASOPHILS % 0.1 % (0.0-2.0); EOSINOPHILS % 0.2 % (0.0-7.0); HEMATOCRIT 26.4 % (37.0-47.0); HEMOGLOBIN 8.3 g/dl (12.0-16.0); LYMPHOCYTES % 8.3 % (15.0-51.0); MEAN CORPUSCULAR HEMOGLOBIN 31.2 pg (29.0-33.0); MEAN CORPUSCULAR HGB CONC 31.4 g/dl (32.0-37.0); MEAN CORPUSCULAR VOLUME 99.2 fl (82.0-101.0); MEAN PLATELET VOLUME 11.9 fl (7.4-10.4); MONOCYTE # 0.8 10^3/ul (0.3-0.9); MONOCYTES % 7.2 % (0.0-11.0); NEUTROPHIL # 9.5 10^3/ul (1.6-7.5); NEUTROPHILS % 82.4 % (39.0-77.0); PLATELET COUNT 126 10^3/UL (140-415); RED BLOOD COUNT 2.66 10^6/ul (4.20-5.40); RED CELL DISTRIBUTION WIDTH 21.4 % (11.5-14.5)
[2018-02-28 04:49] LABS: ANION GAP 6 (5-13); BLOOD UREA NITROGEN 29 mg/dl (7-20); CALCIUM 7.6 mg/dl (8.4-10.2); CARBON DIOXIDE 34 mmol/L (21-31); CHLORIDE 99 mmol/L (97-110); CREATININE 0.46 mg/dl (0.44-1.00); Estimated GFR > 60 mL/min (>60); GLUCOSE 122 mg/dl (70-220); MAGNESIUM 2.1 mg/dl (1.7-2.5); PHOSPHORUS 4.8 mg/dl (2.5-4.9); POTASSIUM 3.8 mmol/L (3.5-5.1); SODIUM 139 mmol/L (135-144)
[2018-02-28] MEDS: ARTIFICIAL TEARS 15 ML OPH BOTH EYES ×4 (04:49→21:05)
[2018-02-28 04:51] LABS: VALPROATE 50 ug/ml (50-100)
[2018-02-28] MEDS: VANCOMYCIN 1 GM (PMX) 250 ML IVPB (05:00)
[2018-02-28 05:06] LABS: VANCOMYCIN,TROUGH 20.8 ug/ml (10.0-20.0)
[2018-02-28] MEDS: DILTIAZEM 60 MG TAB GTB ×4 (05:08→23:29)
[2018-02-28] MEDS: METHYLPREDNISOLONE 125 MG INJ IV ×2 (05:15→17:20)
[2018-02-28] MEDS: PANTOPRAZOLE 40 MG INJ IVPB (05:15)
[2018-02-28] MEDS: OCULAR LUBRICANT 3.5 GM OPH OINT BOTH EYES ×4 (05:16→23:29)
[2018-02-28] MEDS: PROPOFOL 100 ML IV ×3 (06:29→22:29)
[2018-02-28 07:38] LABS: AADO2 Arterial 194.9 mmHg (7.0-24.0); Allen Test ACCEPTAB; Arterial Blood Gas Oxygen Sat 95.9 mmHG (95.0-98.0); Arterial COHb 1.8 % (0.0-3.0); Arterial Fraction of Oxyhgb 93.8 % (93.0-99.0); Arterial HCO3 30.7 mmol/L (22.0-26.0); Arterial MetHb 0.4 % (0.0-1.5); Arterial pCO2 40.2 mmhg (35-45); MODE VENT - AC; Site Right Radial
[2018-02-28] MEDS: QUETIAPINE 25 MG TAB GTB ×4 (08:11→21:04)
[2018-02-28] MEDS: VALPROATE INJ 500 MG in SOD CHLORIDE 0.9% 50 ML IVPB ×2 (08:11→21:04)
[2018-02-28] MEDS: METHADONE 10 MG TAB PO ×2 (08:11→21:05)
[2018-02-28] MEDS: BENAZEPRIL 20 MG TAB GTB ×2 (08:11→21:04)
[2018-02-28] MEDS: LORATADINE 10 MG TAB GTB (08:12)
[2018-02-28] MEDS: CLOTRIMAZOLE 1% 30 GM CR TOP ×2 (08:12→21:05)
[2018-02-28] MEDS: MIDAZOLAM (DRIP) 50 mg/50 mL 50 ML IV ×2 (08:19→19:27)
[2018-02-28] MEDS: HALOPERIDOL 5 MG INJ IV (10:59)
[2018-02-28] MEDS: CASPOFUNGIN 50 MG in SOD CHLORIDE 0.9% 250 ML IVPB (16:41)
[2018-02-28] MEDS: FENTAnyl (DRIP) 1000 mcg/100mL 100 ML IV (16:45)
[2018-02-28] MEDS: VANCOMYCIN 1.25 GM in SOD CHLORIDE 0.9% 250 ML IVPB (18:27)
[2018-03-01] MEDS: AMIKACIN 900 MG in SOD CHLORIDE 0.9% 250 ML IVPB (03:48)
[2018-03-01] MEDS: hydrALAzine 20 MG INJ IV (03:50)
[2018-03-01] MEDS: ARTIFICIAL TEARS 15 ML OPH BOTH EYES ×4 (04:53→21:47)
[2018-03-01] MEDS: morphine 2 MG INJ IV (04:55)
[2018-03-01] MEDS: METHYLPREDNISOLONE 125 MG INJ IV (05:04)
[2018-03-01] MEDS: DILTIAZEM 60 MG TAB GTB ×4 (05:04→23:04)
[2018-03-01] MEDS: OCULAR LUBRICANT 3.5 GM OPH OINT BOTH EYES ×3 (05:04→17:58)
[2018-03-01] MEDS: PANTOPRAZOLE 40 MG INJ IVPB (05:04)
[2018-03-01 05:39] LABS: WHITE BLOOD COUNT 12.3 10^3/ul (4.8-10.8)
[2018-03-01 05:39] LABS: BASOPHILS % 0.1 % (0.0-2.0); HEMATOCRIT 31.5 % (37.0-47.0); HEMOGLOBIN 9.8 g/dl (12.0-16.0); LYMPHOCYTES # 1.5 10^3/ul (0.8-2.9); LYMPHOCYTES % 12.3 % (15.0-51.0); MEAN CORPUSCULAR HEMOGLOBIN 30.3 pg (29.0-33.0); MEAN CORPUSCULAR HGB CONC 31.1 g/dl (32.0-37.0); MEAN CORPUSCULAR VOLUME 97.5 fl (82.0-101.0); MONOCYTE # 1.2 10^3/ul (0.3-0.9); MONOCYTES % 9.4 % (0.0-11.0); NEUTROPHIL # 9.5 10^3/ul (1.6-7.5); NEUTROPHILS % 76.9 % (39.0-77.0); PLATELET COUNT 156 10^3/UL (140-415); RED BLOOD COUNT 3.23 10^6/ul (4.20-5.40); RED CELL DISTRIBUTION WIDTH 19.7 % (11.5-14.5)
[2018-03-01 05:40] LABS: ADD MAN DIFF? NO
[2018-03-01] MEDS: PROPOFOL 100 ML IV ×3 (06:10→18:12)
[2018-03-01 06:12] LABS: VALPROATE 59 ug/ml (50-100)
[2018-03-01 06:14] LABS: ANION GAP 6 (5-13); BLOOD UREA NITROGEN 30 mg/dl (7-20); CARBON DIOXIDE 35 mmol/L (21-31); CHLORIDE 100 mmol/L (97-110); Estimated GFR > 60 mL/min (>60); GLUCOSE 104 mg/dl (70-220); MAGNESIUM 1.9 mg/dl (1.7-2.5); PHOSPHORUS 3.8 mg/dl (2.5-4.9); POTASSIUM 3.5 mmol/L (3.5-5.1); SODIUM 141 mmol/L (135-144)
[2018-03-01] MEDS: LORAZEPAM 2 MG INJ IV ×2 (07:49→18:10)
[2018-03-01] MEDS: QUETIAPINE 25 MG TAB GTB ×4 (08:51→21:41)
[2018-03-01] MEDS: LORATADINE 10 MG TAB GTB (08:51)
[2018-03-01] MEDS: VALPROATE INJ 500 MG in SOD CHLORIDE 0.9% 50 ML IVPB (08:52)
[2018-03-01] MEDS: METHADONE 10 MG TAB PO ×2 (08:52→22:02)
[2018-03-01] MEDS: INFLUENZA VIRUS VACCINE 0.5 ML (DISPENSING) IM* (08:53)
[2018-03-01] MEDS: BENAZEPRIL 20 MG TAB GTB ×2 (08:53→21:46)
[2018-03-01] MEDS: CLOTRIMAZOLE 1% 30 GM CR TOP ×2 (08:55→21:47)
[2018-03-01] MEDS: MIDAZOLAM (DRIP) 50 mg/50 mL 50 ML IV ×2 (10:02→23:02)
[2018-03-01] MEDS: FUROSEMIDE 40 MG INJ IV (10:04)
[2018-03-01] MEDS: POTASSIUM CHLORIDE 20 MEQ POWDER FOR ORAL SOLN NGT (14:00)
[2018-03-01] MEDS: MAGNESIUM SULFATE 2 GM/50 ML 50 ML IVPB (14:00)
[2018-03-01] MEDS: CASPOFUNGIN 50 MG in SOD CHLORIDE 0.9% 250 ML IVPB (17:59)
[2018-03-01] MEDS ORDERED: METHYLPREDNISOLONE 125 MG INJ IV (18:00)
[2018-03-01] MEDS: VANCOMYCIN 1.25 GM in SOD CHLORIDE 0.9% 250 ML IVPB (18:08)
[2018-03-01] MEDS ORDERED: VALPROATE INJ 750 MG in SOD CHLORIDE 0.9% 50 ML IVPB (21:00)
[2018-03-01] MEDS: METHYLPREDNISOLONE 40 MG INJ IV (21:42)
[2018-03-01] MEDS: VALPROATE INJ 750 MG in SOD CHLORIDE 0.9% 50 ML IVPB (21:56)
[2018-03-02] MEDS: OCULAR LUBRICANT 3.5 GM OPH OINT BOTH EYES ×4 (00:27→18:00)
[2018-03-02] MEDS: FENTAnyl (DRIP) 1000 mcg/100mL 100 ML IV (04:12)
[2018-03-02] MEDS: ARTIFICIAL TEARS 15 ML OPH BOTH EYES ×4 (04:15→22:00)
[2018-03-02] MEDS: VALPROATE INJ 750 MG in SOD CHLORIDE 0.9% 50 ML IVPB ×3 (05:27→21:19)
[2018-03-02] MEDS: LANSOPRAZOLE 30 MG CAP GTB (05:28)
[2018-03-02] MEDS: DILTIAZEM 60 MG TAB GTB ×3 (05:29→17:00)
[2018-03-02] MEDS: LORAZEPAM 2 MG INJ IV (05:41)
[2018-03-02 05:52] LABS: ADD MAN DIFF? NO
[2018-03-02 05:54] LABS: BASOPHILS % 0.1 % (0.0-2.0); HEMATOCRIT 35.2 % (37.0-47.0); HEMOGLOBIN 10.9 g/dl (12.0-16.0); LYMPHOCYTES # 0.8 10^3/ul (0.8-2.9); LYMPHOCYTES % 10.3 % (15.0-51.0); MEAN CORPUSCULAR HEMOGLOBIN 30.5 pg (29.0-33.0); MEAN CORPUSCULAR VOLUME 98.6 fl (82.0-101.0); MEAN PLATELET VOLUME 12.1 fl (7.4-10.4); MONOCYTE # 0.5 10^3/ul (0.3-0.9); MONOCYTES % 6.7 % (0.0-11.0); NEUTROPHIL # 6.3 10^3/ul (1.6-7.5); NEUTROPHILS % 82.1 % (39.0-77.0); PLATELET COUNT 164 10^3/UL (140-415); RED BLOOD COUNT 3.57 10^6/ul (4.20-5.40); RED CELL DISTRIBUTION WIDTH 18.8 % (11.5-14.5)
[2018-03-02 05:54] LABS: WHITE BLOOD COUNT 7.7 10^3/ul (4.8-10.8)
[2018-03-02 06:13] LABS: MAGNESIUM 2.4 mg/dl (1.7-2.5)
[2018-03-02 06:13] LABS: PHOSPHORUS 3.8 mg/dl (2.5-4.9)
[2018-03-02] MEDS: PROPOFOL 100 ML IV ×2 (06:13→12:52)
[2018-03-02] MEDS: MIDAZOLAM (DRIP) 50 mg/50 mL 50 ML IV (06:13)
[2018-03-02 06:18] LABS: VALPROATE 67 ug/ml (50-100)
[2018-03-02 06:20] LABS: ALANINE AMINOTRANSFERASE 40 IU/L (13-69); ALBUMIN 2.8 g/dl (3.3-4.9); ALBUMIN/GLOBULIN RATIO 1.03; ALKALINE PHOSPHATASE 127 IU/L (42-121); ANION GAP 5 (5-13); ASPARTATE AMINO TRANSFERASE 38 IU/L (15-46); BILIRUBIN,INDIRECT 0.9 mg/dl (0-1.1); BILIRUBIN,TOTAL 0.9 mg/dl (0.2-1.3); BLOOD UREA NITROGEN 34 mg/dl (7-20); CALCIUM 8.5 mg/dl (8.4-10.2); CARBON DIOXIDE 36 mmol/L (21-31); CHLORIDE 101 mmol/L (97-110); CREATININE 0.43 mg/dl (0.44-1.00); Estimated GFR > 60 mL/min (>60); GLUCOSE 131 mg/dl (70-220); POTASSIUM 4.6 mmol/L (3.5-5.1); SODIUM 142 mmol/L (135-144); TOTAL PROTEIN 5.5 g/dl (6.1-8.1)
[2018-03-02 06:21] LABS: B-TYPE NATRIURETIC PEPTIDE 6370 PG/ML (0-125)
[2018-03-02] MEDS: hydrALAzine 20 MG INJ IV (07:35)
[2018-03-02 07:43] LABS: AADO2 Arterial 201.1 mmHg (7.0-24.0); Allen Test ACCEPTAB; Arterial Base Excess 8.8 mmol/L (-3.0-3); Arterial Blood Gas Oxygen Sat 94.8 mmHG (95.0-98.0); Arterial COHb 1.7 % (0.0-3.0); Arterial Fraction of Oxyhgb 92.7 % (93.0-99.0); Arterial HCO3 32.8 mmol/L (22.0-26.0); Arterial MetHb 0.5 % (0.0-1.5); Arterial Total Hemglobin 12.6 g/dl (12.0-18.0); Arterial pCO2 42.5 mmhg (35-45); MODE VENT - AC; Site Left Radial
[2018-03-02] MEDS: morphine 2 MG INJ IV (08:10)
[2018-03-02] MEDS: ACETAZOLAMIDE 500 MG INJ IV (08:30)
[2018-03-02] MEDS: METHYLPREDNISOLONE 40 MG INJ IV ×2 (09:39→21:19)
[2018-03-02] MEDS: QUETIAPINE 25 MG TAB GTB (09:40)
[2018-03-02] MEDS: BENAZEPRIL 20 MG TAB GTB ×2 (09:41→21:21)
[2018-03-02] MEDS: LORATADINE 10 MG TAB GTB (09:41)
[2018-03-02] MEDS: CLOTRIMAZOLE 1% 30 GM CR TOP ×2 (09:42→21:00)
[2018-03-02] MEDS: METHADONE 10 MG TAB PO ×2 (10:11→21:40)
[2018-03-02] MEDS: QUETIAPINE 100 MG TAB PO ×3 (12:49→21:22)
[2018-03-02] MEDS: CASPOFUNGIN 50 MG in SOD CHLORIDE 0.9% 250 ML IVPB (17:00)
[2018-03-02] MEDS: VANCOMYCIN 1.25 GM in SOD CHLORIDE 0.9% 250 ML IVPB (17:00)
[2018-03-03] MEDS: morphine 2 MG INJ IV (02:49)
[2018-03-03] MEDS: AMIKACIN 900 MG in SOD CHLORIDE 0.9% 250 ML IVPB (03:47)
[2018-03-03] MEDS: FENTAnyl (DRIP) 1000 mcg/100mL 100 ML IV (03:58)
[2018-03-03] MEDS: PROPOFOL 100 ML IV ×3 (05:16→23:39)
[2018-03-03] MEDS: DILTIAZEM 60 MG TAB GTB ×4 (05:18→17:33)
[2018-03-03 05:23] LABS: ADD MAN DIFF? NO
[2018-03-03 05:24] LABS: WHITE BLOOD COUNT 6.6 10^3/ul (4.8-10.8)
[2018-03-03 05:24] LABS: BASOPHILS % 0.2 % (0.0-2.0); HEMATOCRIT 34.7 % (37.0-47.0); HEMOGLOBIN 10.5 g/dl (12.0-16.0); LYMPHOCYTES # 0.8 10^3/ul (0.8-2.9); LYMPHOCYTES % 12.5 % (15.0-51.0); MEAN CORPUSCULAR HEMOGLOBIN 30.5 pg (29.0-33.0); MEAN CORPUSCULAR HGB CONC 30.3 g/dl (32.0-37.0); MEAN CORPUSCULAR VOLUME 100.9 fl (82.0-101.0); MEAN PLATELET VOLUME 12.1 fl (7.4-10.4); MONOCYTE # 0.5 10^3/ul (0.3-0.9); MONOCYTES % 7.3 % (0.0-11.0); NEUTROPHIL # 5.2 10^3/ul (1.6-7.5); NEUTROPHILS % 79.4 % (39.0-77.0); PLATELET COUNT 169 10^3/UL (140-415); RED BLOOD COUNT 3.44 10^6/ul (4.20-5.40); RED CELL DISTRIBUTION WIDTH 18.6 % (11.5-14.5)
[2018-03-03] MEDS ORDERED: NORepinephrine 8MG/250 ML (PMX 250 ML (05:25)
[2018-03-03 05:50] LABS: ANION GAP 7 (5-13); BLOOD UREA NITROGEN 35 mg/dl (7-20); CALCIUM 8.6 mg/dl (8.4-10.2); CARBON DIOXIDE 31 mmol/L (21-31); CHLORIDE 103 mmol/L (97-110); CREATININE 0.59 mg/dl (0.44-1.00); Estimated GFR > 60 mL/min (>60); GLUCOSE 134 mg/dl (70-220); MAGNESIUM 2.2 mg/dl (1.7-2.5); PHOSPHORUS 4.5 mg/dl (2.5-4.9); POTASSIUM 4.2 mmol/L (3.5-5.1); SODIUM 141 mmol/L (135-144)
[2018-03-03 05:51] LABS: VALPROATE 84 ug/ml (50-100)
[2018-03-03] MEDS: OCULAR LUBRICANT 3.5 GM OPH OINT BOTH EYES ×4 (06:00→17:32)
[2018-03-03] MEDS: LANSOPRAZOLE 30 MG CAP GTB (06:24)
[2018-03-03] MEDS: ARTIFICIAL TEARS 15 ML OPH BOTH EYES ×4 (06:24→23:30)
[2018-03-03] MEDS: VALPROATE INJ 750 MG in SOD CHLORIDE 0.9% 50 ML IVPB ×3 (06:24→20:49)
[2018-03-03] MEDS: MIDAZOLAM (DRIP) 50 mg/50 mL 50 ML IV ×2 (07:20→21:13)
[2018-03-03 07:36] LABS: AADO2 Arterial 133.8 mmHg (7.0-24.0); Allen Test ACCEPTAB; Arterial Base Excess 4.7 mmol/L (-3.0-3); Arterial Blood Gas Oxygen Sat 95.6 mmHG (95.0-98.0); Arterial COHb 1.3 % (0.0-3.0); Arterial Fraction of Oxyhgb 93.8 % (93.0-99.0); Arterial HCO3 31.2 mmol/L (22.0-26.0); Arterial MetHb 0.6 % (0.0-1.5); Arterial Total Hemglobin 10.8 g/dl (12.0-18.0); Arterial pCO2 56.3 mmhg (35-45); MODE VENT - AC; Site Right Radial
[2018-03-03] MEDS: ACETAZOLAMIDE 500 MG INJ IV (08:49)
[2018-03-03] MEDS: CLOTRIMAZOLE 1% 30 GM CR TOP ×2 (08:52→20:49)
[2018-03-03] MEDS: QUETIAPINE 100 MG TAB PO ×4 (08:52→21:00)
[2018-03-03] MEDS: LORATADINE 10 MG TAB GTB (08:52)
[2018-03-03] MEDS: METHYLPREDNISOLONE 40 MG INJ IV ×2 (08:53→21:48)
[2018-03-03] MEDS: BENAZEPRIL 20 MG TAB GTB ×2 (08:53→21:00)
[2018-03-03] MEDS: METHADONE 10 MG TAB PO ×2 (08:59→21:48)
[2018-03-03] MEDS: ACETYLCYSTEINE 20% 4 ML VIAL NEB ×3 (09:30→19:16)
[2018-03-03] MEDS: ALBUTEROL HFA 8 GM INHALER INH ×2 (13:02→19:16)
[2018-03-03] MEDS: CASPOFUNGIN 50 MG in SOD CHLORIDE 0.9% 250 ML IVPB (17:32)
[2018-03-03 17:39] LABS: VANCOMYCIN,TROUGH 11.1 ug/ml (10.0-20.0)
[2018-03-03] MEDS: VANCOMYCIN 1.25 GM in SOD CHLORIDE 0.9% 250 ML IVPB (18:50)
[2018-03-04] MEDS: ALBUTEROL HFA 8 GM INHALER INH ×3 (01:01→19:59)
[2018-03-04] MEDS: ACETYLCYSTEINE 20% 4 ML VIAL NEB ×4 (01:01→20:00)
[2018-03-04] MEDS: LABETALOL HCL 20MG INJ IV (02:49)
[2018-03-04 05:27] LABS: ADD MAN DIFF? NO
[2018-03-04] MEDS: VALPROATE INJ 750 MG in SOD CHLORIDE 0.9% 50 ML IVPB ×3 (05:28→21:03)
[2018-03-04] MEDS: ARTIFICIAL TEARS 15 ML OPH BOTH EYES ×4 (05:28→20:40)
[2018-03-04 05:29] LABS: WHITE BLOOD COUNT 6.6 10^3/ul (4.8-10.8)
[2018-03-04 05:29] LABS: HEMATOCRIT 30.6 % (37.0-47.0); HEMOGLOBIN 9.2 g/dl (12.0-16.0); LYMPHOCYTES # 1.1 10^3/ul (0.8-2.9); MEAN CORPUSCULAR HEMOGLOBIN 30.3 pg (29.0-33.0); MEAN CORPUSCULAR HGB CONC 30.1 g/dl (32.0-37.0); MEAN CORPUSCULAR VOLUME 100.7 fl (82.0-101.0); MEAN PLATELET VOLUME 12.2 fl (7.4-10.4); MONOCYTE # 0.7 10^3/ul (0.3-0.9); MONOCYTES % 11.2 % (0.0-11.0); NEUTROPHIL # 4.8 10^3/ul (1.6-7.5); NEUTROPHILS % 72.3 % (39.0-77.0); PLATELET COUNT 149 10^3/UL (140-415); RED BLOOD COUNT 3.04 10^6/ul (4.20-5.40); RED CELL DISTRIBUTION WIDTH 18.2 % (11.5-14.5)
[2018-03-04] MEDS: OCULAR LUBRICANT 3.5 GM OPH OINT BOTH EYES ×4 (05:29→18:06)
[2018-03-04] MEDS: LANSOPRAZOLE 30 MG CAP GTB (05:39)
[2018-03-04] MEDS: DILTIAZEM 60 MG TAB GTB ×4 (05:40→17:18)
[2018-03-04 06:02] LABS: B-TYPE NATRIURETIC PEPTIDE 2990 PG/ML (0-125)
[2018-03-04 06:05] LABS: VALPROATE 68 ug/ml (50-100)
[2018-03-04] MEDS: PROPOFOL 100 ML IV ×2 (06:55→20:37)
[2018-03-04 07:41] LABS: ANION GAP 5 (5-13); BLOOD UREA NITROGEN 38 mg/dl (7-20); CALCIUM 8.5 mg/dl (8.4-10.2); CARBON DIOXIDE 28 mmol/L (21-31); CHLORIDE 109 mmol/L (97-110); CREATININE 0.55 mg/dl (0.44-1.00); Estimated GFR > 60 mL/min (>60); GLUCOSE 94 mg/dl (70-220); MAGNESIUM 2.1 mg/dl (1.7-2.5); PHOSPHORUS 4.5 mg/dl (2.5-4.9); SODIUM 142 mmol/L (135-144)
[2018-03-04] MEDS: METHYLPREDNISOLONE 40 MG INJ IV (09:04)
[2018-03-04] MEDS: METHADONE 10 MG TAB PO ×3 (09:04→22:35)
[2018-03-04] MEDS: QUETIAPINE 100 MG TAB PO ×4 (09:04→20:39)
[2018-03-04] MEDS: FUROSEMIDE 20 MG INJ IV (09:04)
[2018-03-04] MEDS: BENAZEPRIL 20 MG TAB GTB ×2 (09:04→20:39)
[2018-03-04] MEDS: LORATADINE 10 MG TAB GTB (09:05)
[2018-03-04] MEDS: CLOTRIMAZOLE 1% 30 GM CR TOP ×2 (09:06→20:40)
[2018-03-04] MEDS: ACETAMINOPHEN 650MG/20.3ML CUP GTB (13:32)
[2018-03-04 15:20] LABS: SODIUM 140 mmol/L (135-144)
[2018-03-04 15:30] LABS: SODIUM,URINE RANDOM 86 mmol/L (30-90)
[2018-03-04 16:50] LABS: OSMOLALITY,URINE 326 mOsm/kg (250-1200)
[2018-03-04] MEDS: CASPOFUNGIN 50 MG in SOD CHLORIDE 0.9% 250 ML IVPB (17:05)
[2018-03-04] MEDS: POTASSIUM CHLORIDE 20 MEQ POWDER FOR ORAL SOLN NGT (18:06)
[2018-03-04] MEDS: VANCOMYCIN 1.5 GM in SOD CHLORIDE 0.9% 250 ML IVPB (18:06)
[2018-03-04] MEDS: morphine 2 MG INJ IV (23:13)
[2018-03-05] MEDS: DILTIAZEM 60 MG TAB GTB ×5 (00:11→18:19)
[2018-03-05] MEDS: ACETYLCYSTEINE 20% 4 ML VIAL NEB ×4 (02:00→19:46)
[2018-03-05] MEDS: ALBUTEROL HFA 8 GM INHALER INH ×5 (03:02→19:47)
[2018-03-05] MEDS: morphine 2 MG INJ IV ×3 (03:06→21:51)
[2018-03-05] MEDS: PROPOFOL 100 ML IV ×2 (04:02→11:46)
[2018-03-05 05:06] LABS: ADD MAN DIFF? NO
[2018-03-05 05:13] LABS: WHITE BLOOD COUNT 6.8 10^3/ul (4.8-10.8)
[2018-03-05 05:13] LABS: EOSINOPHILS % 0.4 % (0.0-7.0); HEMATOCRIT 31.4 % (37.0-47.0); HEMOGLOBIN 9.7 g/dl (12.0-16.0); LYMPHOCYTES # 1.5 10^3/ul (0.8-2.9); MEAN CORPUSCULAR HEMOGLOBIN 30.6 pg (29.0-33.0); MEAN CORPUSCULAR HGB CONC 30.9 g/dl (32.0-37.0); MEAN CORPUSCULAR VOLUME 99.1 fl (82.0-101.0); MEAN PLATELET VOLUME 11.9 fl (7.4-10.4); MONOCYTE # 0.9 10^3/ul (0.3-0.9); MONOCYTES % 13.5 % (0.0-11.0); NEUTROPHIL # 4.3 10^3/ul (1.6-7.5); NEUTROPHILS % 63.7 % (39.0-77.0); PLATELET COUNT 139 10^3/UL (140-415); RED BLOOD COUNT 3.17 10^6/ul (4.20-5.40); RED CELL DISTRIBUTION WIDTH 18.4 % (11.5-14.5)
[2018-03-05] MEDS: AMIKACIN 900 MG in SOD CHLORIDE 0.9% 250 ML IVPB (05:19)
[2018-03-05] MEDS: LORAZEPAM 1 MG TAB GTB ×3 (05:19→21:51)
[2018-03-05] MEDS: OCULAR LUBRICANT 3.5 GM OPH OINT BOTH EYES ×4 (05:20→17:53)
[2018-03-05] MEDS: OXYCODONE/ACETAMINOPHEN (5/325) TAB PO (05:20)
[2018-03-05] MEDS: ARTIFICIAL TEARS 15 ML OPH BOTH EYES ×4 (05:20→21:19)
[2018-03-05] MEDS: VALPROATE INJ 750 MG in SOD CHLORIDE 0.9% 50 ML IVPB ×3 (05:23→21:19)
[2018-03-05 05:27] LABS: ANION GAP 4 (5-13); BLOOD UREA NITROGEN 34 mg/dl (7-20); CALCIUM 8.7 mg/dl (8.4-10.2); CARBON DIOXIDE 34 mmol/L (21-31); CHLORIDE 103 mmol/L (97-110); Estimated GFR > 60 mL/min (>60); GLUCOSE 76 mg/dl (70-220); MAGNESIUM 2.1 mg/dl (1.7-2.5); PHOSPHORUS 4.5 mg/dl (2.5-4.9); POTASSIUM 4.1 mmol/L (3.5-5.1); SODIUM 141 mmol/L (135-144)
[2018-03-05] MEDS: LANSOPRAZOLE 30 MG CAP GTB (05:33)
[2018-03-05] MEDS: METHADONE 10 MG TAB PO ×3 (05:34→21:19)
[2018-03-05] MEDS: LABETALOL HCL 20MG INJ IV (06:11)
[2018-03-05] MEDS: FUROSEMIDE 20 MG INJ IV (09:49)
[2018-03-05] MEDS: METHYLPREDNISOLONE 40 MG INJ IV (09:49)
[2018-03-05] MEDS: BENAZEPRIL 20 MG TAB GTB ×2 (09:50→21:19)
[2018-03-05] MEDS: LORATADINE 10 MG TAB GTB (09:50)
[2018-03-05] MEDS: CLOTRIMAZOLE 1% 30 GM CR TOP ×2 (09:50→21:08)
[2018-03-05] MEDS: POTASSIUM CHLORIDE 20 MEQ POWDER FOR ORAL SOLN NGT (09:50)
[2018-03-05] MEDS: QUETIAPINE 100 MG TAB PO ×5 (09:50→21:18)
[2018-03-05] MEDS: ACETAMINOPHEN 650MG/20.3ML CUP GTB (11:49)
[2018-03-05] MEDS: CASPOFUNGIN 50 MG in SOD CHLORIDE 0.9% 250 ML IVPB (16:41)
[2018-03-05] MEDS: VANCOMYCIN 1.5 GM in SOD CHLORIDE 0.9% 250 ML IVPB (17:54)
[2018-03-06] MEDS: ACETYLCYSTEINE 20% 4 ML VIAL NEB ×4 (01:02→20:39)
[2018-03-06] MEDS: ALBUTEROL HFA 8 GM INHALER INH ×3 (01:02→14:06)
[2018-03-06] MEDS: LORAZEPAM 1 MG TAB GTB ×4 (03:59→22:12)
[2018-03-06] MEDS: morphine 2 MG INJ IV ×2 (03:59→17:20)
[2018-03-06] MEDS: VALPROATE INJ 750 MG in SOD CHLORIDE 0.9% 50 ML IVPB ×3 (04:07→21:32)
[2018-03-06] MEDS: ARTIFICIAL TEARS 15 ML OPH BOTH EYES ×4 (04:07→21:26)
[2018-03-06] MEDS: ENALAPRILAT 1.25 MG INJ IV (04:08)
[2018-03-06 05:07] LABS: ADD MAN DIFF? NO
[2018-03-06 05:09] LABS: WHITE BLOOD COUNT 4.3 10^3/ul (4.8-10.8)
[2018-03-06 05:09] LABS: EOSINOPHILS % 0.7 % (0.0-7.0); HEMATOCRIT 26.3 % (37.0-47.0); HEMOGLOBIN 8.2 g/dl (12.0-16.0); LYMPHOCYTES # 1.2 10^3/ul (0.8-2.9); LYMPHOCYTES % 28.7 % (15.0-51.0); MEAN CORPUSCULAR HEMOGLOBIN 31.5 pg (29.0-33.0); MEAN CORPUSCULAR HGB CONC 31.2 g/dl (32.0-37.0); MEAN CORPUSCULAR VOLUME 101.2 fl (82.0-101.0); MEAN PLATELET VOLUME 12.2 fl (7.4-10.4); MONOCYTE # 0.5 10^3/ul (0.3-0.9); MONOCYTES % 12.6 % (0.0-11.0); NEUTROPHIL # 2.5 10^3/ul (1.6-7.5); NEUTROPHILS % 57.8 % (39.0-77.0); PLATELET COUNT 117 10^3/UL (140-415); RED CELL DISTRIBUTION WIDTH 18.6 % (11.5-14.5)
[2018-03-06] MEDS: METHADONE 10 MG TAB PO ×3 (05:15→21:21)
[2018-03-06] MEDS: LANSOPRAZOLE 30 MG CAP GTB (05:15)
[2018-03-06] MEDS: OCULAR LUBRICANT 3.5 GM OPH OINT BOTH EYES ×5 (05:15→23:42)
[2018-03-06] MEDS: DILTIAZEM 60 MG TAB GTB ×5 (05:15→23:43)
[2018-03-06 05:25] LABS: ANION GAP 5 (5-13); BLOOD UREA NITROGEN 32 mg/dl (7-20); CALCIUM 8.3 mg/dl (8.4-10.2); CARBON DIOXIDE 36 mmol/L (21-31); CHLORIDE 100 mmol/L (97-110); CREATININE 0.58 mg/dl (0.44-1.00); Estimated GFR > 60 mL/min (>60); GLUCOSE 101 mg/dl (70-220); POTASSIUM 3.4 mmol/L (3.5-5.1); SODIUM 141 mmol/L (135-144)
[2018-03-06 05:31] LABS: LACTIC ACID 1.3 mmol/L (0.5-2.0)
[2018-03-06] MEDS: PROPOFOL 100 ML IV (06:01)
[2018-03-06 07:26] LABS: AADO2 Arterial 85.5 mmHg (7.0-24.0); Allen Test ACCEPTAB; Arterial Base Excess 7.5 mmol/L (-3.0-3); Arterial Blood Gas Oxygen Sat 96.1 mmHG (95.0-98.0); Arterial COHb 0.6 % (0.0-3.0); Arterial HCO3 30.9 mmol/L (22.0-26.0); Arterial MetHb 0.5 % (0.0-1.5); Arterial pCO2 38.9 mmhg (35-45); MODE VENT - AC; Site Right Radial
[2018-03-06] MEDS: QUETIAPINE 100 MG TAB PO ×4 (08:09→23:43)
[2018-03-06] MEDS: BENAZEPRIL 20 MG TAB GTB ×2 (08:09→21:19)
[2018-03-06] MEDS: POTASSIUM CHLORIDE 20 MEQ POWDER FOR ORAL SOLN NGT (08:09)
[2018-03-06] MEDS: LORATADINE 10 MG TAB GTB (08:09)
[2018-03-06] MEDS: METHYLPREDNISOLONE 40 MG INJ IV (08:10)
[2018-03-06] MEDS: CLOTRIMAZOLE 1% 30 GM CR TOP ×2 (08:10→21:27)
[2018-03-06] MEDS: ACETAMINOPHEN 650MG/20.3ML CUP GTB (08:21)
[2018-03-06] MEDS: FUROSEMIDE 20 MG INJ IV (09:09)
[2018-03-06] MEDS: POTASSIUM CHLORIDE 100 ML IVPB (09:49)
[2018-03-06 11:14] LABS: POTASSIUM 3.9 mmol/L (3.5-5.1)
[2018-03-06 11:14] LABS: PHOSPHORUS 3.7 mg/dl (2.5-4.9)
[2018-03-06 11:16] LABS: INR 1.19; PROTIME 15.3 Sec (11.9-14.9); PT RATIO 1.2
[2018-03-06] MEDS: DEXMEDETOMIDINE HCL 200 MCG in SOD CHLORIDE 0.9% 48 ML IV ×3 (14:18→21:41)
[2018-03-06] MEDS: CASPOFUNGIN 50 MG in SOD CHLORIDE 0.9% 250 ML IVPB (16:01)
[2018-03-06] MEDS: VANCOMYCIN 1.5 GM in SOD CHLORIDE 0.9% 250 ML IVPB (17:19)
[2018-03-07] MEDS: DEXMEDETOMIDINE HCL 200 MCG in SOD CHLORIDE 0.9% 48 ML IV ×4 (01:01→19:49)
[2018-03-07] MEDS: LORAZEPAM 1 MG TAB GTB ×4 (01:59→18:45)
[2018-03-07] MEDS: AMIKACIN 900 MG in SOD CHLORIDE 0.9% 250 ML IVPB (03:01)
[2018-03-07] MEDS: ARTIFICIAL TEARS 15 ML OPH BOTH EYES ×4 (03:07→21:31)
[2018-03-07] MEDS: ACETYLCYSTEINE 20% 4 ML VIAL NEB ×4 (03:15→20:03)
[2018-03-07 04:56] LABS: ADD MAN DIFF? NO
[2018-03-07 05:13] LABS: AADO2 Arterial 67.8 mmHg (7.0-24.0); Allen Test ACCEPTAB; Arterial Base Excess 5.3 mmol/L (-3.0-3); Arterial Blood Gas Oxygen Sat 96.3 mmHG (95.0-98.0); Arterial COHb 0.5 % (0.0-3.0); Arterial Fraction of Oxyhgb 95.5 % (93.0-99.0); Arterial HCO3 30.5 mmol/L (22.0-26.0); Arterial MetHb 0.3 % (0.0-1.5); Arterial pCO2 48.1 mmhg (35-45); MODE VENT - AC; Site Right Radial
[2018-03-07 05:21] LABS: ABNORMAL IP MESSAGE 1; BASOPHILS % 0.2 % (0.0-2.0); HEMATOCRIT 26.3 % (37.0-47.0); LYMPHOCYTES # 1.1 10^3/ul (0.8-2.9); LYMPHOCYTES % 27.5 % (15.0-51.0); MEAN CORPUSCULAR HEMOGLOBIN 30.4 pg (29.0-33.0); MEAN CORPUSCULAR HGB CONC 30.4 g/dl (32.0-37.0); MEAN PLATELET VOLUME 12.4 fl (7.4-10.4); MONOCYTE # 0.5 10^3/ul (0.3-0.9); MONOCYTES % 13.2 % (0.0-11.0); NEUTROPHIL # 2.3 10^3/ul (1.6-7.5); NEUTROPHILS % 57.6 % (39.0-77.0); PLATELET COUNT 88 10^3/UL (140-415); RED BLOOD COUNT 2.63 10^6/ul (4.20-5.40); RED CELL DISTRIBUTION WIDTH 18.3 % (11.5-14.5)
[2018-03-07] MEDS: VALPROATE INJ 750 MG in SOD CHLORIDE 0.9% 50 ML IVPB ×3 (05:31→21:31)
[2018-03-07] MEDS: LANSOPRAZOLE 30 MG CAP GTB (05:32)
[2018-03-07] MEDS: METHADONE 10 MG TAB PO ×3 (05:32→23:08)
[2018-03-07] MEDS: DILTIAZEM 60 MG TAB GTB ×3 (05:37→18:45)
[2018-03-07] MEDS: QUETIAPINE 100 MG TAB PO ×3 (05:37→18:45)
[2018-03-07 05:39] LABS: ANION GAP 3 (5-13); BLOOD UREA NITROGEN 25 mg/dl (7-20); CALCIUM 8.2 mg/dl (8.4-10.2); CARBON DIOXIDE 36 mmol/L (21-31); CHLORIDE 103 mmol/L (97-110); CREATININE 0.49 mg/dl (0.44-1.00); Estimated GFR > 60 mL/min (>60); GLUCOSE 97 mg/dl (70-220); MAGNESIUM 1.9 mg/dl (1.7-2.5); PHOSPHORUS 3.8 mg/dl (2.5-4.9); POTASSIUM 3.5 mmol/L (3.5-5.1); SODIUM 142 mmol/L (135-144)
[2018-03-07 05:44] LABS: B-TYPE NATRIURETIC PEPTIDE 5610 PG/ML (0-125)
[2018-03-07 05:49] LABS: POSITIVE DIFF @See below
[2018-03-07] MEDS: OCULAR LUBRICANT 3.5 GM OPH OINT BOTH EYES ×3 (05:49→18:45)
[2018-03-07] MEDS ORDERED: METHYLPREDNISOLONE 40 MG INJ (07:33)
[2018-03-07] MEDS: LORATADINE 10 MG TAB GTB (07:34)
[2018-03-07] MEDS: CLOTRIMAZOLE 1% 30 GM CR TOP ×2 (07:35→21:31)
[2018-03-07] MEDS: METHYLPREDNISOLONE 40 MG INJ IV (07:35)
[2018-03-07] MEDS: BENAZEPRIL 20 MG TAB GTB ×2 (07:35→21:32)
[2018-03-07] MEDS: ALBUTEROL HFA 8 GM INHALER INH ×2 (08:26→13:01)
[2018-03-07 09:10] LABS: IRON 82 ug/dl (35-150)
[2018-03-07 09:19] LABS: % IRON SATURATION 32 % SAT (22-52); TOTAL IRON BINDING CAPACITY 253 ug/dl (241-421)
[2018-03-07] MEDS ORDERED: LORAZEPAM 2 MG INJ (10:06)
[2018-03-07] MEDS: LORAZEPAM 2 MG INJ IV (10:08)
[2018-03-07] MEDS: ACETAMINOPHEN 650MG/20.3ML CUP GTB (14:49)
[2018-03-07] MEDS: CASPOFUNGIN 50 MG in SOD CHLORIDE 0.9% 250 ML IVPB (16:18)
[2018-03-07 18:16] LABS: VANCOMYCIN,TROUGH 9.7 ug/ml (10.0-20.0)
[2018-03-07] MEDS: VANCOMYCIN 1.5 GM in SOD CHLORIDE 0.9% 250 ML IVPB (18:38)
[2018-03-08] MEDS: DILTIAZEM 60 MG TAB GTB ×4 (00:31→18:00)
[2018-03-08] MEDS: QUETIAPINE 100 MG TAB PO ×4 (00:31→17:18)
[2018-03-08] MEDS: OCULAR LUBRICANT 3.5 GM OPH OINT BOTH EYES ×4 (00:32→17:18)
[2018-03-08] MEDS: LORAZEPAM 1 MG TAB GTB ×8 (00:39→22:32)
[2018-03-08] MEDS: ACETYLCYSTEINE 20% 4 ML VIAL NEB ×4 (02:33→19:29)
[2018-03-08] MEDS: ARTIFICIAL TEARS 15 ML OPH BOTH EYES ×4 (03:55→21:01)
[2018-03-08] MEDS: DEXMEDETOMIDINE HCL 200 MCG in SOD CHLORIDE 0.9% 48 ML IV ×2 (04:07→13:57)
[2018-03-08] MEDS: VALPROATE INJ 750 MG in SOD CHLORIDE 0.9% 50 ML IVPB ×3 (05:07→21:21)
[2018-03-08] MEDS: LANSOPRAZOLE 30 MG CAP GTB (05:07)
[2018-03-08] MEDS: METHADONE 10 MG TAB PO ×3 (05:08→21:21)
[2018-03-08 05:48] LABS: ADD MAN DIFF? NO
[2018-03-08 05:59] LABS: WHITE BLOOD COUNT 4.8 10^3/ul (4.8-10.8)
[2018-03-08 05:59] LABS: ABNORMAL IP MESSAGE 1; EOSINOPHILS # 0.1 10^3/ul (0.0-0.5); EOSINOPHILS % 1.1 % (0.0-7.0); HEMOGLOBIN 9.3 g/dl (12.0-16.0); LYMPHOCYTES # 1.2 10^3/ul (0.8-2.9); LYMPHOCYTES % 26.1 % (15.0-51.0); MEAN CORPUSCULAR HEMOGLOBIN 30.7 pg (29.0-33.0); MEAN PLATELET VOLUME 12.8 fl (7.4-10.4); MONOCYTE # 0.4 10^3/ul (0.3-0.9); NEUTROPHILS % 63.4 % (39.0-77.0); PLATELET COUNT 84 10^3/UL (140-415); RED BLOOD COUNT 3.03 10^6/ul (4.20-5.40); RED CELL DISTRIBUTION WIDTH 17.7 % (11.5-14.5)
[2018-03-08 06:18] LABS: POSITIVE DIFF @See below
[2018-03-08 06:31] LABS: VALPROATE 98 ug/ml (50-100)
[2018-03-08 06:34] LABS: ANION GAP 6 (5-13); BLOOD UREA NITROGEN 25 mg/dl (7-20); CALCIUM 8.8 mg/dl (8.4-10.2); CARBON DIOXIDE 36 mmol/L (21-31); CHLORIDE 99 mmol/L (97-110); Estimated GFR > 60 mL/min (>60); GLUCOSE 91 mg/dl (70-220); MAGNESIUM 1.9 mg/dl (1.7-2.5); PHOSPHORUS 3.8 mg/dl (2.5-4.9); POTASSIUM 3.7 mmol/L (3.5-5.1); SODIUM 141 mmol/L (135-144)
[2018-03-08] MEDS: morphine 2 MG INJ IV ×4 (07:53→21:05)
[2018-03-08] MEDS: METHYLPREDNISOLONE 40 MG INJ IV (08:57)
[2018-03-08] MEDS: BENAZEPRIL 20 MG TAB GTB ×2 (08:57→21:00)
[2018-03-08] MEDS: CLOTRIMAZOLE 1% 30 GM CR TOP ×2 (08:57→21:06)
[2018-03-08] MEDS: LORATADINE 10 MG TAB GTB (08:57)
[2018-03-08] MEDS: ALBUTEROL HFA 8 GM INHALER INH ×3 (09:57→19:29)
[2018-03-08] MEDS: VANCOMYCIN 750 MG in SOD CHLORIDE 0.9% 150 ML IVPB (11:23)
[2018-03-08] MEDS: ZYVOX 600 MG TAB PO ×2 (15:17→21:21)
[2018-03-09] MEDS: QUETIAPINE 100 MG TAB PO ×5 (00:14→23:25)
[2018-03-09] MEDS: OCULAR LUBRICANT 3.5 GM OPH OINT BOTH EYES ×5 (00:15→23:26)
[2018-03-09] MEDS: DILTIAZEM 60 MG TAB GTB ×5 (00:24→23:25)
[2018-03-09] MEDS: DEXMEDETOMIDINE HCL 200 MCG in SOD CHLORIDE 0.9% 48 ML IV (01:19)
[2018-03-09] MEDS: ACETYLCYSTEINE 20% 4 ML VIAL NEB ×4 (01:28→21:18)
[2018-03-09] MEDS: ALBUTEROL HFA 8 GM INHALER INH ×4 (01:28→21:18)
[2018-03-09] MEDS: morphine 2 MG INJ IV ×2 (02:17→11:35)
[2018-03-09] MEDS: DIPHENHYDRAMINE 50 MG INJ IV ×2 (02:17→13:13)
[2018-03-09] MEDS: LORAZEPAM 1 MG TAB GTB ×7 (03:20→22:41)
[2018-03-09] MEDS: ARTIFICIAL TEARS 15 ML OPH BOTH EYES ×4 (04:00→22:16)
[2018-03-09] MEDS: LABETALOL HCL 20MG INJ IV (04:35)
[2018-03-09] MEDS: METHADONE 10 MG TAB PO ×3 (05:05→22:16)
[2018-03-09] MEDS: LANSOPRAZOLE 30 MG CAP GTB (05:05)
[2018-03-09 05:35] LABS: ADD MAN DIFF? NO
[2018-03-09 05:42] LABS: ABNORMAL IP MESSAGE 1; BASOPHILS % 0.2 % (0.0-2.0); EOSINOPHILS # 0.1 10^3/ul (0.0-0.5); EOSINOPHILS % 0.9 % (0.0-7.0); HEMATOCRIT 27.3 % (37.0-47.0); HEMOGLOBIN 8.5 g/dl (12.0-16.0); LYMPHOCYTES # 1.1 10^3/ul (0.8-2.9); LYMPHOCYTES % 19.8 % (15.0-51.0); MEAN CORPUSCULAR HEMOGLOBIN 30.7 pg (29.0-33.0); MEAN CORPUSCULAR HGB CONC 31.1 g/dl (32.0-37.0); MEAN CORPUSCULAR VOLUME 98.6 fl (82.0-101.0); MONOCYTE # 0.8 10^3/ul (0.3-0.9); MONOCYTES % 14.8 % (0.0-11.0); NEUTROPHIL # 3.6 10^3/ul (1.6-7.5); NEUTROPHILS % 64.1 % (39.0-77.0); PLATELET COUNT 80 10^3/UL (140-415); RED BLOOD COUNT 2.77 10^6/ul (4.20-5.40); RED CELL DISTRIBUTION WIDTH 17.2 % (11.5-14.5)
[2018-03-09 05:42] LABS: WHITE BLOOD COUNT 5.6 10^3/ul (4.8-10.8)
[2018-03-09 05:54] LABS: POSITIVE DIFF @See below
[2018-03-09 06:37] LABS: ANION GAP 4 (5-13); BLOOD UREA NITROGEN 21 mg/dl (7-20); CALCIUM 8.7 mg/dl (8.4-10.2); CARBON DIOXIDE 38 mmol/L (21-31); CHLORIDE 99 mmol/L (97-110); CREATININE 0.42 mg/dl (0.44-1.00); Estimated GFR > 60 mL/min (>60); GLUCOSE 81 mg/dl (70-220); MAGNESIUM 1.9 mg/dl (1.7-2.5); PHOSPHORUS 3.9 mg/dl (2.5-4.9); POTASSIUM 3.3 mmol/L (3.5-5.1); SODIUM 141 mmol/L (135-144)
[2018-03-09 06:54] LABS: VALPROATE 76 ug/ml (50-100)
[2018-03-09] MEDS: VALPROATE INJ 750 MG in SOD CHLORIDE 0.9% 50 ML IVPB ×3 (06:56→20:56)
[2018-03-09] MEDS: POTASSIUM CHLORIDE 20 MEQ POWDER FOR ORAL SOLN GTB ×2 (08:19→08:30)
[2018-03-09] MEDS: BENAZEPRIL 20 MG TAB GTB ×2 (08:19→20:56)
[2018-03-09] MEDS: LORATADINE 10 MG TAB GTB (08:19)
[2018-03-09] MEDS: METHYLPREDNISOLONE 40 MG INJ IV (08:20)
[2018-03-09] MEDS: CLOTRIMAZOLE 1% 30 GM CR TOP ×2 (08:20→21:01)
[2018-03-09] MEDS: ZYVOX 600 MG TAB PO ×2 (08:20→20:56)
[2018-03-09] MEDS: MAGNESIUM SULFATE 2 GM/50 ML 50 ML IVPB (09:26)
[2018-03-09] MEDS: clonAZEPAM 0.5 MG TAB PO (16:25)
[2018-03-10] MEDS: LORAZEPAM 1 MG TAB GTB ×2 (01:22→13:57)
[2018-03-10] MEDS: ACETYLCYSTEINE 20% 4 ML VIAL NEB ×2 (02:31→08:57)
[2018-03-10] MEDS: ALBUTEROL HFA 8 GM INHALER INH ×2 (02:31→08:57)
[2018-03-10] MEDS: clonAZEPAM 0.5 MG TAB PO ×2 (03:03→16:03)
[2018-03-10] MEDS: ARTIFICIAL TEARS 15 ML OPH BOTH EYES ×3 (03:37→15:43)
[2018-03-10] MEDS: LANSOPRAZOLE 30 MG CAP GTB (05:17)
[2018-03-10] MEDS: VALPROATE INJ 750 MG in SOD CHLORIDE 0.9% 50 ML IVPB ×2 (05:17→13:39)
[2018-03-10] MEDS: QUETIAPINE 100 MG TAB PO ×3 (05:17→17:53)
[2018-03-10] MEDS: OCULAR LUBRICANT 3.5 GM OPH OINT BOTH EYES ×3 (05:20→17:51)
[2018-03-10 05:21] LABS: ADD MAN DIFF? NO
[2018-03-10 05:26] LABS: WHITE BLOOD COUNT 6.8 10^3/ul (4.8-10.8)
[2018-03-10 05:26] LABS: ABNORMAL IP MESSAGE 1; BASOPHILS % 0.1 % (0.0-2.0); EOSINOPHILS # 0.1 10^3/ul (0.0-0.5); EOSINOPHILS % 0.9 % (0.0-7.0); HEMATOCRIT 30.4 % (37.0-47.0); HEMOGLOBIN 9.4 g/dl (12.0-16.0); LYMPHOCYTES # 1.8 10^3/ul (0.8-2.9); MEAN CORPUSCULAR HEMOGLOBIN 30.3 pg (29.0-33.0); MEAN CORPUSCULAR HGB CONC 30.9 g/dl (32.0-37.0); MEAN CORPUSCULAR VOLUME 98.1 fl (82.0-101.0); MEAN PLATELET VOLUME 12.6 fl (7.4-10.4); MONOCYTES % 14.2 % (0.0-11.0); NEUTROPHILS % 58.5 % (39.0-77.0); PLATELET COUNT 87 10^3/UL (140-415); RED CELL DISTRIBUTION WIDTH 17.6 % (11.5-14.5)
[2018-03-10] MEDS: DILTIAZEM 60 MG TAB GTB ×3 (05:33→17:52)
[2018-03-10 05:34] LABS: POSITIVE DIFF @See below
[2018-03-10 05:45] LABS: ANION GAP 6 (5-13); BLOOD UREA NITROGEN 21 mg/dl (7-20); CARBON DIOXIDE 37 mmol/L (21-31); CHLORIDE 97 mmol/L (97-110); CREATININE 0.52 mg/dl (0.44-1.00); Estimated GFR > 60 mL/min (>60); GLUCOSE 91 mg/dl (70-220); MAGNESIUM 2.3 mg/dl (1.7-2.5); SODIUM 140 mmol/L (135-144)
[2018-03-10] MEDS: METHADONE 10 MG TAB PO ×2 (06:02→15:40)
[2018-03-10] MEDS: BENAZEPRIL 20 MG TAB GTB (08:17)
[2018-03-10] MEDS: ZYVOX 600 MG TAB PO (08:17)
[2018-03-10] MEDS: LORATADINE 10 MG TAB GTB (08:17)
[2018-03-10] MEDS: CLOTRIMAZOLE 1% 30 GM CR TOP (08:18)
== END 2018-03-10 20:17 | disposition short-term general hospital (02) | DRG 870 ==
LOC: TEL 03-10 12:58 → ICU 08:50
PROC: 5A1955Z Respiratory Ventilation, Greater than 96 Consecutive Hours (ICD-10-PCS; principal; 2018-02-22)
PROC: 30233K1 Transfusion of Nonautologous Frozen Plasma into Peripheral Vein, Percutaneous Approach (ICD-10-PCS; 2018-02-23)
PROC: 02H633Z Insertion of Infusion Device into Right Atrium, Percutaneous Approach (ICD-10-PCS; 2018-02-23)
PROC: 30233N1 Transfusion of Nonautologous Red Blood Cells into Peripheral Vein, Percutaneous Approach (ICD-10-PCS; 2018-02-24)
DX: A41.9 Sepsis, unspecified organism (principal); J18.9 Pneumonia, unspecified organism; J96.21 Acute and chronic respiratory failure with hypoxia; J95.01 Hemorrhage from tracheostomy stoma; G93.1 Anoxic brain damage, not elsewhere classified; E87.0 Hyperosmolality and hypernatremia; M31.8 Other specified necrotizing vasculopathies; Z99.11 Dependence on respirator [ventilator] status; E87.3 Alkalosis; N39.0 Urinary tract infection, site not specified; R65.20 Severe sepsis without septic shock; D64.9 Anemia, unspecified; I10 Essential (primary) hypertension; Z86.73 Personal history of transient ischemic attack (TIA), and cerebral infarction without residual deficits; Z99.81 Dependence on supplemental oxygen; Z93.1 Gastrostomy status; R13.10 Dysphagia, unspecified; G40.909 Epilepsy, unspecified, not intractable, without status epilepticus; K08.89 Other specified disorders of teeth and supporting structures; I16.0 Hypertensive urgency; E87.70 Fluid overload, unspecified; B95.2 Enterococcus as the cause of diseases classified elsewhere
CPT/HCPCS: 36430; 36569; 36600; 70450; 71045; 76937; 80048; 80053; 80150; 80164; 80202; 81001; 81003; 82043; 82140; 82595; 82728; 82803; 83540; 83605; 83735; 83880; 83935; 84100; 84132; 84145; 84155; 84295; 84300; 85014; 85018; 85025; 85610; 85613; 86021; 86038; 86146; 86147; 86160; 86226; 86430; 86704; 86709; 86803; 86850; 86900; 86901; 86920; 87040; 87070; 87075; 87081; 87086; 87340; 89220; 90686; 93306; 94002; 94003; 94640; 94664; 94799; 97163; 97164

== ENCOUNTER 2018-04-11 18:02 | Emergency (ER) | payer OTHER ==
[2018-04-11] MEDS: SOD CHLORIDE 0.9% 500 ML IV (20:21)
[2018-04-11] MEDS: LABETALOL HCL 20MG INJ IV (20:21)
[2018-04-11] MEDS: LORAZEPAM 2 MG INJ IV ×2 (20:57→22:05)
== END 2018-04-11 22:28 | disposition home or self-care (01) ==
LOC: E/R 18:02
DX: R00.0 Tachycardia, unspecified (principal); Z86.79 Personal history of other diseases of the circulatory system
CPT/HCPCS: 93005; 96374; 96375; 96376; 99284-25